=== PATIENT | female | born 1955 | race Caucasian/White ===

== ENCOUNTER 2021-07-08 21:48 | Emergency (ER) | payer OTHER ==
[2021-07-08 22:49] LABS: BASOPHIL 0.4 % (0-2); EOSINOPHIL 0.7 % (0-7); HCT 37.4 % (37.0-47.0); HGB 12.2 g/dl (12.5-16.0); LYMPHOCYTE 10.7 % (15-48); MCH 30.5 pg (25.0-31.0); MCHC 32.6 g/dL (32.0-36.0); MCV 93.5 fL (78.0-100.0); MONOCYTE 8.7 % (0-12); MPV 9.5 fL (6.0-9.5); NEUTROPHIL 79.1 % (41-80); NRBC 0; PLT 313 K/uL (150-400); RDW 12.4 % (11.5-14.0); WBC 11.3 K/uL (4.0-10.5)
[2021-07-08 23:13] LABS: BILIRUBIN - TOTAL 0.2 mg/dL (0.2-1.0); CREATININE 0.46 mg/dL (0.51-0.95); GLOBULIN (CALCULATION) 4.4 g/dL; POTASSIUM 4.2 mmol/L (3.5-5.1); PRO-BNP 70 pg/mL (<125); TOTAL PROTEIN 7.4 g/dL (6.4-8.2)
[2021-07-08 23:17] LABS: LACTIC ACID 0.9 mmol/L (0.4-1.9)
[2021-07-09] MEDS ORDERED: DUONEB 2.5-0.5M1 AMP NEB (00:33)
[2021-07-09] MEDS ORDERED: MEDROL 4MG DOSEP4 MG PO (00:33)
[2021-07-09] MEDS ORDERED: LEVAQUIN750 MG PO (00:33)
== END 2021-07-09 00:49 | disposition home or self-care (01) ==
LOC: FER 21:48
PROVIDERS: Emergency Medicine Emergency Medical Services
DX: J44.1 Chronic obstructive pulmonary disease with (acute) exacerbation (principal); F17.210 Nicotine dependence, cigarettes, uncomplicated; Z20.822 Contact with and (suspected) exposure to COVID-19; Z86.11 Personal history of tuberculosis
CPT/HCPCS: 36415; 36600; 71045; 80053; 82803; 83605; 83880; 84145; 84484; 85025; 93005; 94640; 94664; 94760; U0002

== ENCOUNTER 2021-07-15 20:22 | Inpatient (IN) | payer OTHER ==
[~2021-07-15] VITALS: Ht 162.6 cm; Wt 35.4 kg
[~2021-07-15 20:22] MED LIST: DUONEB 2.5-0.5M1 AMP NEB; LEVAQUIN750 MG PO; MEDROL 4MG DOSEP4 MG PO
[2021-07-15 21:17] LABS: BASOPHIL 0.3 % (0-2); EOSINOPHIL 1.4 % (0-7); HCT 43.2 % (37.0-47.0); LYMPHOCYTE 16.7 % (15-48); MCHC 32.4 g/dL (32.0-36.0); MCV 92.5 fL (78.0-100.0); MONOCYTE 9.7 % (0-12); MPV 9.1 fL (6.0-9.5); NEUTROPHIL 71.4 % (41-80); NRBC 0; PLT 509 K/uL (150-400); RBC 4.67 M/uL (4.20-5.40); RDW 12.1 % (11.5-14.0); WBC 22.7 K/uL (4.0-10.5)
[2021-07-15 21:36] LABS: ALBUMIN 3.6 g/dL (3.4-5.0); BILIRUBIN - TOTAL 0.4 mg/dL (0.2-1.0); BUN/CREAT RATIO (CALC) 18.8 RATIO; CREATININE 0.48 mg/dL (0.51-0.95); GLOBULIN (CALCULATION) 4.3 g/dL; POTASSIUM 4.4 mmol/L (3.5-5.1); TOTAL PROTEIN 7.9 g/dL (6.4-8.2)
[2021-07-15 21:52] LABS: CORONAVIRUS 2019 SARS-COV-2 NEGATIVE (NEGATIVE); INFLUENZA A NAA NEGATIVE (NEGATIVE)
[2021-07-16] MEDS ORDERED: SYMBICORT 80-10.2 GM INH (00:38)
[2021-07-16] MEDS ORDERED: SPIRIVA18 MCG PO (00:40)
[2021-07-16] MEDS ORDERED: VENTOLIN HFA IN18 GM INH (00:41)
[2021-07-16] MEDS ORDERED: ST. JOSEPH ASPI81 M1 PO (00:44)
[2021-07-16 05:38] LABS: BASOPHIL 0.1 % (0-2); EOSINOPHIL 0 % (0-7); HCT 37.7 % (37.0-47.0); HGB 12.4 g/dl (12.5-16.0); LYMPHOCYTE 3.4 % (15-48); MCH 30.4 pg (25.0-31.0); MCHC 32.9 g/dL (32.0-36.0); MCV 92.4 fL (78.0-100.0); MONOCYTE 1.2 % (0-12); MPV 9.1 fL (6.0-9.5); NEUTROPHIL 94.9 % (41-80); NRBC 0; PLT 334 K/uL (150-400); RBC 4.08 M/uL (4.20-5.40); RDW 11.9 % (11.5-14.0); WBC 16.3 K/uL (4.0-10.5)
[2021-07-16 06:17] LABS: CREATININE 0.5 mg/dL (0.51-0.95); MAGNESIUM 2.4 mg/dL (1.8-2.4); POTASSIUM 4.6 mmol/L (3.5-5.1)
[2021-07-16] MEDS ORDERED: cardizem (21:13)
[2021-07-16] MEDS ORDERED: CARDIZEM60 MG PO (21:14)
--- NOTE | 2021-07-17 10:43 | NUR ---
07/17/21 Ms. Melara lives at home with her spouse. They have 6 adult children. Ms. Melara has 02 at 2.5 liters at home. She is otherwise independent. - She has a PCP at [facility].
--- NOTE | 2021-07-17 19:01 | NUR ---
PT HAD BEEN STUCK FOR AN IV 5 TIMES ALL UNSUCCESSFUL [address] IQBAL STATES THAT HE WILL CHANGE THE SOLU-MEDROL OVER TO PO PREDNISONE AND WAS OKAY WITH NOT HAVING AN IV
[2021-07-18 07:18] LABS: BASOPHIL 0.1 % (0-2); EOSINOPHIL 3.7 % (0-7); HCT 35.5 % (37.0-47.0); HGB 11.5 g/dl (12.5-16.0); LYMPHOCYTE 16.7 % (15-48); MCH 30.2 pg (25.0-31.0); MCHC 32.4 g/dL (32.0-36.0); MCV 93.2 fL (78.0-100.0); MONOCYTE 10.5 % (0-12); MPV 9.2 fL (6.0-9.5); NEUTROPHIL 68.5 % (41-80); NRBC 0; PLT 330 K/uL (150-400); RBC 3.81 M/uL (4.20-5.40); RDW 12.3 % (11.5-14.0); WBC 12.8 K/uL (4.0-10.5)
[2021-07-18 07:43] LABS: BUN/CREAT RATIO (CALC) 24.4 RATIO; CREATININE 0.45 mg/dL (0.51-0.95); POTASSIUM 3.4 mmol/L (3.5-5.1)
[2021-07-18] MEDS ORDERED: PREDNISONE 20MG20 MG PO (16:04)
[2021-07-18] MEDS ORDERED: LEVAQUIN500 MG PO (16:04)
--- NOTE | 2021-07-18 17:11 | NUR ---
DISCHARGE ORDERS RECEIVED. NO IV ACCESS. PT HOME WITH HOME OXYGEN FROM PREVIOUS ORDER. PT VERBALIZED UNDERSTANDING OF ALL DISCHARGE ORDERS AND APPOINTMENTS. SCRIPTS SENT WITH PATIENT. COPY IN CHART.
== END 2021-07-18 16:40 | disposition home or self-care (01) | DRG 189 ==
LOC: FER 20:22 → FTCU 23:09
PROVIDERS: Emergency Medicine Emergency Medical Services; Nurse Practitioner; ADMIT Internal Medicine
DX: J96.01 Acute respiratory failure with hypoxia (principal); E43 Unspecified severe protein-calorie malnutrition; R65.11 Systemic inflammatory response syndrome (SIRS) of non-infectious origin with acute organ dysfunction; J44.1 Chronic obstructive pulmonary disease with (acute) exacerbation; E87.1 Hypo-osmolality and hyponatremia; R64 Cachexia; E87.2 Acidosis; Z68.1 Body mass index [BMI] 19.9 or less, adult; Z20.822 Contact with and (suspected) exposure to COVID-19; Z51.5 Encounter for palliative care; J96.02 Acute respiratory failure with hypercapnia; I10 Essential (primary) hypertension; Z99.81 Dependence on supplemental oxygen; Z90.710 Acquired absence of both cervix and uterus; Z90.89 Acquired absence of other organs; Z79.82 Long term (current) use of aspirin; Z79.51 Long term (current) use of inhaled steroids
CPT/HCPCS: 36415; 36600; 71045; 80048; 80053; 82803; 83605; 83735; 84145; 84484; 85025; 87040; 93005; 94010; 94640; 94667; 94668; 94760; 94762; J1650; J1956; J2270; J2405; J2930; J3475; J7030; J7050; J7512; U0002

== ENCOUNTER 2022-01-22 20:48 | Emergency (ER) | payer OTHER ==
[~2022-01-22 20:48] MED LIST changes: +CARDIZEM60 MG PO; +LEVAQUIN500 MG PO; +PREDNISONE 20MG20 MG PO; +SPIRIVA18 MCG PO; +ST. JOSEPH ASPI81 M1 PO; +SYMBICORT 80-10.2 GM INH; +VENTOLIN HFA IN18 GM INH; +cardizem
[2022-01-22 21:14] LABS: BASOPHIL 0.9 % (0-2); EOSINOPHIL 3.7 % (0-7); HCT 42.1 % (37.0-47.0); HGB 13.7 g/dl (12.5-16.0); LYMPHOCYTE 21.8 % (15-48); MCH 30.1 pg (25.0-31.0); MCHC 32.5 g/dL (32.0-36.0); MCV 92.5 fL (78.0-100.0); MPV 9.9 fL (6.0-9.5); NEUTROPHIL 64.4 % (41-80); NRBC 0; PLT 462 K/uL (150-400); RBC 4.55 M/uL (4.20-5.40); RDW 13.5 % (11.5-14.0); WBC 13.6 K/uL (4.0-10.5)
[2022-01-22 21:31] LABS: LACTIC ACID 1.6 mmol/L (0.4-1.9)
[2022-01-22 21:42] LABS: ALBUMIN 3.7 g/dL (3.4-5.0); BILIRUBIN - TOTAL 0.4 mg/dL (0.2-1.0); BUN/CREAT RATIO (CALC) 14.3 RATIO; CREATININE 0.49 mg/dL (0.51-0.95); GLOBULIN (CALCULATION) 3.9 g/dL; POTASSIUM 3.9 mmol/L (3.5-5.1); TOTAL PROTEIN 7.6 g/dL (6.4-8.2)
[2022-01-22] MEDS ORDERED: VIBRAMYCIN100 MG PO (23:20)
[2022-01-22] MEDS ORDERED: PREDNISONE 20MG20 MG PO (23:20)
[2022-01-22 23:37] LABS: CORONAVIRUS 2019 SARS-COV-2 NEGATIVE (NEGATIVE); INFLUENZA A NAA NEGATIVE (NEGATIVE)
== END 2022-01-22 23:51 | disposition home or self-care (01) ==
LOC: FER 20:48
PROVIDERS: Internal Medicine
DX: J43.9 Emphysema, unspecified (principal); R00.0 Tachycardia, unspecified; I25.10 Atherosclerotic heart disease of native coronary artery without angina pectoris; E78.5 Hyperlipidemia, unspecified; F17.210 Nicotine dependence, cigarettes, uncomplicated; Z20.822 Contact with and (suspected) exposure to COVID-19; Z99.81 Dependence on supplemental oxygen; Z79.51 Long term (current) use of inhaled steroids; Z79.899 Other long term (current) drug therapy
CPT/HCPCS: 36415; 36600; 71045; 80053; 82803; 83605; 83880; 84145; 84484; 85025; 87040; 93005; J1100; J2543; J7030; U0002

== ENCOUNTER 2022-01-28 20:31 | Inpatient (IN) | payer OTHER ==
[~2022-01-28] VITALS: Ht 162.6 cm; Wt 35.1 kg
[~2022-01-28 20:31] MED LIST changes: +VIBRAMYCIN100 MG PO
[2022-01-28 21:04] LABS: BASOPHIL 0.3 % (0-2); EOSINOPHIL 0.3 % (0-7); HCT 40.9 % (37.0-47.0); HGB 13.5 g/dl (12.5-16.0); MCH 30.6 pg (25.0-31.0); MCV 92.7 fL (78.0-100.0); MONOCYTE 10.4 % (0-12); MPV 9.4 fL (6.0-9.5); NRBC 0; PLT 499 K/uL (150-400); RBC 4.41 M/uL (4.20-5.40); RDW 13.6 % (11.5-14.0); WBC 19.6 K/uL (4.0-10.5)
[2022-01-28 21:12] LABS: NEUTROPHIL 70.6 % (41-80)
[2022-01-28 21:14] LABS: INR 0.89 (0.9-1.2); PROTHROMBIN TIME 11.5 SECONDS (11.8-13.4)
[2022-01-28 21:27] LABS: ALBUMIN 3.6 g/dL (3.4-5.0); BILIRUBIN - TOTAL 0.7 mg/dL (0.2-1.0); BUN/CREAT RATIO (CALC) 15.8 RATIO; CREATININE 0.57 mg/dL (0.51-0.95); GLOBULIN (CALCULATION) 3.7 g/dL; POTASSIUM 3.9 mmol/L (3.5-5.1); TOTAL PROTEIN 7.3 g/dL (6.4-8.2)
[2022-01-28 21:29] LABS: CORONAVIRUS 2019 SARS-COV-2 NEGATIVE (NEGATIVE); INFLUENZA A NAA NEGATIVE (NEGATIVE)
[2022-01-28 21:31] LABS: LACTIC ACID 1.7 mmol/L (0.4-1.9)
[2022-01-28 22:02] LABS: BILIRUBIN NEGATIVE (NEGATIVE); BLOOD NEGATIVE Ery/uL (NEGATIVE); CLARITY CLEAR (CLEAR); COLOR YELLOW (YELLOW); GLUCOSE (U) NORMAL (NORMAL); LEUKOCYTES 1+ Leu/uL (NEGATIVE); NITRITE NEGATIVE (NEGATIVE); PROTEIN NEGATIVE (NEGATIVE); UROBILINOGEN 0.2 mg/dL (0.2-1.0)
[2022-01-28 22:08] LABS: BACTERIA 1+; TRANSITIONAL EPITHELIAL CELLS RARE; URINARY RBC RARE; YEAST PRESENT
[2022-01-29] MEDS ORDERED: LIPITOR 10MG TA10 MG PO (07:06)
[2022-01-29 07:15] LABS: BASOPHIL 0.1 % (0-2); EOSINOPHIL 0 % (0-7); HCT 37.1 % (37.0-47.0); HGB 12.1 g/dl (12.5-16.0); LYMPHOCYTE 6.7 % (15-48); MCH 30.4 pg (25.0-31.0); MCHC 32.6 g/dL (32.0-36.0); MCV 93.2 fL (78.0-100.0); MPV 9.5 fL (6.0-9.5); NEUTROPHIL 91.8 % (41-80); NRBC 0; PLT 370 K/uL (150-400); RBC 3.98 M/uL (4.20-5.40); RDW 13.5 % (11.5-14.0)
[2022-01-29 07:18] LABS: WBC 11.1 K/uL (4.0-10.5)
[2022-01-29 07:45] LABS: ALBUMIN 2.9 g/dL (3.4-5.0); BILIRUBIN - TOTAL 0.5 mg/dL (0.2-1.0); BUN/CREAT RATIO (CALC) 19.1 RATIO; C-REACTIVE PROTEIN 0.3 mg/dL (<=0.90); CREATININE 0.47 mg/dL (0.51-0.95); GLOBULIN (CALCULATION) 3.5 g/dL; PHOSPHORUS 3.9 mg/dL (2.6-4.7); POTASSIUM 3.8 mmol/L (3.5-5.1); TOTAL PROTEIN 6.4 g/dL (6.4-8.2)
[2022-01-29 08:21] LABS: MAGNESIUM 2.3 mg/dL (1.8-2.4)
[2022-01-30 06:26] LABS: BASOPHIL 0.1 % (0-2); EOSINOPHIL 0.1 % (0-7); HCT 33.6 % (37.0-47.0); HGB 10.8 g/dl (12.5-16.0); LYMPHOCYTE 13.5 % (15-48); MCH 30.2 pg (25.0-31.0); MCHC 32.1 g/dL (32.0-36.0); MCV 93.9 fL (78.0-100.0); MONOCYTE 10.7 % (0-12); MPV 9.5 fL (6.0-9.5); NEUTROPHIL 75.1 % (41-80); NRBC 0; PLT 353 K/uL (150-400); RBC 3.58 M/uL (4.20-5.40); RDW 13.8 % (11.5-14.0); WBC 12.9 K/uL (4.0-10.5)
[2022-01-30 06:36] LABS: BUN/CREAT RATIO (CALC) 15.6 RATIO; CREATININE 0.45 mg/dL (0.51-0.95); POTASSIUM 3.2 mmol/L (3.5-5.1)
[2022-01-30] MEDS ORDERED: PREDNISONE 20MG20 MG PO (08:51)
[2022-01-30] MEDS ORDERED: DUONEB 2.5-0.5M1 AMP NEB (09:22)
--- NOTE | 2022-01-30 10:37 | NUR ---
01/30/22 Ms. Melara lives at home with her spouse. She has 02 at 3 L and portable tanks. [facility] - A HHR was made to A for PT and nursing per patient choice.
== END 2022-01-30 10:46 | disposition home or self-care (01) | DRG 189 ==
LOC: FER 20:31 → FMS 23:21
PROVIDERS: Family Medicine; Nurse Practitioner; Physician Assistant; ADMIT Internal Medicine
DX: J96.21 Acute and chronic respiratory failure with hypoxia (principal); J44.1 Chronic obstructive pulmonary disease with (acute) exacerbation; B37.49 Other urogenital candidiasis; Z20.822 Contact with and (suspected) exposure to COVID-19; J96.22 Acute and chronic respiratory failure with hypercapnia; I10 Essential (primary) hypertension; E78.5 Hyperlipidemia, unspecified; R73.9 Hyperglycemia, unspecified; D64.9 Anemia, unspecified; Z99.81 Dependence on supplemental oxygen; Z79.899 Other long term (current) drug therapy; Z90.711 Acquired absence of uterus with remaining cervical stump; Z98.890 Other specified postprocedural states; Z87.891 Personal history of nicotine dependence
CPT/HCPCS: 36415; 36600; 71275; 80048; 80053; 81001; 82803; 83036; 83605; 83735; 83880; 84100; 84145; 84484; 85025; 85610; 86140; 87040; 93005; 94010; 94640; 94762; J0692; J1650; J2930; J3475; J7512; Q9967; U0002

== ENCOUNTER 2022-08-19 20:38 | Day surgery (SDCO) | payer OTHER ==
[~2022-08-19] VITALS: Ht 162.6 cm; Wt 35.4 kg
[~2022-08-19 20:38] MED LIST changes: +LIPITOR 10MG TA10 MG PO
[2022-08-19 21:18] LABS: BASOPHIL 0.2 % (0-2); EOSINOPHIL 0.1 % (0-7); HCT 43.8 % (37.0-47.0); HGB 13.8 g/dl (12.5-16.0); LYMPHOCYTE 17.7 % (15-48); MCH 29.7 pg (25.0-31.0); MCHC 31.5 g/dL (32.0-36.0); MCV 94.2 fL (78.0-100.0); MONOCYTE 12.4 % (0-12); NEUTROPHIL 69.3 % (41-80); NRBC 0; PLT 421 K/uL (150-400); RBC 4.65 M/uL (4.20-5.40); RDW 13.7 % (11.5-14.0)
[2022-08-19 21:39] LABS: ALBUMIN 3.8 g/dL (3.4-5.0); BILIRUBIN - TOTAL 0.4 mg/dL (0.2-1.0); BUN/CREAT RATIO (CALC) 20.8 RATIO; CREATININE 0.48 mg/dL (0.51-0.95); GLOBULIN (CALCULATION) 3.8 g/dL; TOTAL PROTEIN 7.6 g/dL (6.4-8.2)
[2022-08-19 21:56] LABS: CORONAVIRUS 2019 SARS-COV-2 NEGATIVE (NEGATIVE); INFLUENZA A NAA NEGATIVE (NEGATIVE)
[2022-08-20 06:09] LABS: BASOPHIL 0.1 % (0-2); EOSINOPHIL 0 % (0-7); HCT 37.8 % (37.0-47.0); HGB 12.2 g/dl (12.5-16.0); LYMPHOCYTE 6.1 % (15-48); MCH 30.7 pg (25.0-31.0); MCHC 32.3 g/dL (32.0-36.0); MCV 95.2 fL (78.0-100.0); MONOCYTE 1.3 % (0-12); MPV 10.2 fL (6.0-9.5); NEUTROPHIL 92.1 % (41-80); NRBC 0; PLT 323 K/uL (150-400); RBC 3.97 M/uL (4.20-5.40); RDW 13.6 % (11.5-14.0)
[2022-08-20 06:12] LABS: WBC 10.8 K/uL (4.0-10.5)
[2022-08-20 06:50] LABS: BUN/CREAT RATIO (CALC) 23.1 RATIO; CREATININE 0.39 mg/dL (0.51-0.95); POTASSIUM 3.7 mmol/L (3.5-5.1)
[2022-08-20] MEDS ORDERED: XOPENEX (11.25 MG/3 NEB ×2 (10:29)
[2022-08-20] MEDS ORDERED: IPRATROPIUM0.2 MG/ML NEB (10:29)
[2022-08-20] MEDS ORDERED: SYMBICORT 80-10.2 GM INH (10:29)
[2022-08-20] MEDS ORDERED: PREDNISONE 20MG20 MG PO (10:29)
== END 2022-08-20 11:21 | disposition home or self-care (01) ==
LOC: FER 20:38 → FMS 08-20 00:50
PROVIDERS: Emergency Medicine; Nurse Practitioner Acute Care; ADMIT Internal Medicine
DX: J44.1 Chronic obstructive pulmonary disease with (acute) exacerbation (principal); J96.11 Chronic respiratory failure with hypoxia; I10 Essential (primary) hypertension; D64.9 Anemia, unspecified; R73.9 Hyperglycemia, unspecified; R63.6 Underweight; R64 Cachexia; F17.210 Nicotine dependence, cigarettes, uncomplicated; I25.10 Atherosclerotic heart disease of native coronary artery without angina pectoris; Z99.81 Dependence on supplemental oxygen; Z20.822 Contact with and (suspected) exposure to COVID-19; Z86.73 Personal history of transient ischemic attack (TIA), and cerebral infarction without residual deficits
CPT/HCPCS: 36415; 36600; 71045; 80048; 80053; 82803; 83605; 84145; 84443; 84484; 85025; 86140; 87040; 93005; 94010; 94640; 94664; 94667; 94760; 94762; G0378; J0692; J1650; J2920; J2930; J3475; J7030; J7050; J7512; U0002